=== PATIENT | male | born 1945 | race Caucasian/White ===

== ENCOUNTER 2018-12-15 06:12 | Emergency (ER) | payer MEDICARE ==
[2018-12-15] MEDS ORDERED: Aspirin Chewable 81 MG TAB ONE (06:54)
[2018-12-15 06:57] LABS: ALT (SGPT) 20 U/L (8-55); AST (SGOT) 46 U/L (5-34); Albumin 4.4 g/dL (3.4-4.8); Alkaline Phosphatase 75 U/L (40-150); Anion Gap 16 mmol/L (10-20); BUN (Urea Nitrogen) 12 mg/dL (8.4-25.7); Bilirubin, Total 0.5 mg/dL (0.2-1.2); CK (CPK) 221 U/L (30-200); Calc. Creatinine Clearance 0 mL/min (70-130); Calcium 9.6 mg/dL (7.8-10.44); Carbon Dioxide 24 mmol/L (23-31); Chloride 102 mmol/L (98-107); Estimated GFR-MDRD 56; Globulin 3.1 g/dL (2.4-3.5); Glucose 130 mg/dL (83-110); Lipase 17 U/L (8-78); Potassium 4.1 mmol/L (3.5-5.1); Protein, Total 7.5 g/dL (5.8-8.1); Sodium 138 mmol/L (136-145)
[2018-12-15 06:58] LABS: #Lymphocytes 0.8 thou/uL (1.20-3.40); #Monocytes 0.4 thou/uL (0.11-0.59); #Neutrophils 7.9 thou/uL (1.40-6.50); %Basophils 0.4 % (0.0-1.0); %Eosinophils 0.5 % (0.0-10.0); %Lymphocytes 9.1 % (21.0-51.0); %Monocytes 4.5 % (0.0-10.0); %Neutrophils 85.4 % (42.0-75.0); Anisocytosis SLIGHT = 6-15 cells (100X) (0-5/hpf); Hemoglobin 10.6 g/dL (14.0-18.0); Hypochromia SLIGHT = 6-15 cells (100X) (0-5/hpf); MDiff Complete? YES; Mean Corpuscular HGB CONC 30.4 g/dL (32.0-36.0); Mean Corpuscular Hemoglobin 23.3 pg (27.0-31.0); Mean Corpuscular Volume 76.5 fL (78.0-98.0); Mean Platelet Volume 8.2 fL (7.4-10.4); Microcytosis SLIGHT = 6-15 cells (100X) (0-5/hpf); Ovalocytes SLIGHT = 2-5 cells (100X) (0-1/hpf); Platelet Count 276 thou/uL (130-400); Platelet Morphology Comment Appears Adequate; RBC Distribution Width 14.2 % (11.5-14.5); Red Blood Cell (RBC) Count 4.55 mill/uL (4.70-6.10); White Blood Cell (WBC) Count 9.3 thou/uL (4.8-10.8)
[2018-12-15 07:23] LABS: CKMB 16.1 ng/mL (0-6.6)
[2018-12-15] MEDS ORDERED: Heparin 10,000 UNITS/1 ML VIAL ONE (07:29)
[2018-12-15] MEDS ORDERED: Heparin 25,000 units/D5W 500 ML ONE (07:30)
--- NOTE | 2018-12-15 08:00 | RAD ---
PORTABLE CHEST ONE VIEW: 12/15/2018 6:29 a.m. HISTORY: Chest pain. FINDINGS: The heart size is normal. The lungs are well expanded without lobar consolidation, pneumothoraces, o r pleural effusions. IMPRESSION: No acute process. POS: OFF
== END 2018-12-15 08:31 | disposition short-term general hospital (02) ==
LOC: NAV ERS 06:12
DX: R79.89 Other specified abnormal findings of blood chemistry (principal); E78.5 Hyperlipidemia, unspecified; I10 Essential (primary) hypertension; Z87.891 Personal history of nicotine dependence; Z79.891 Long term (current) use of opiate analgesic; Z79.899 Other long term (current) drug therapy
CPT/HCPCS: 71045; 80053; 82550; 82553; 83690; 83880; 84484; 85025; 93005; 96365; J1644

== ENCOUNTER 2018-12-28 13:59 | Inpatient (IN) | payer MEDICARE ==
[2018-12-28 14:29] VITALS: BMI 25.3
[2018-12-28] MEDS ORDERED: HYDROcodone/Acetaminophen 5/325 mg Tablet PO PRN (19:18)
[2018-12-28] MEDS ORDERED: Nitroglycerin 0.4 MG TAB 1 EACH SL PRN (19:22)
[2018-12-28] MEDS ORDERED: Zolpidem Tartrate 5 MG TAB PO PRN (19:24)
[2018-12-28] MEDS ORDERED: traMADol HCl 50 MG TAB PO PRN (19:24)
[2018-12-28] MEDS: Cephalexin 500 MG CAP PO SCH (21:34)
[2018-12-28] MEDS: Docusate 100 MG CAP PO SCH (21:34)
[2018-12-28] MEDS: Famotidine 20 MG TAB PO SCH (21:34)
[2018-12-28] MEDS: Methocarbamol 500 MG TAB PO SCH (21:34)
[2018-12-28] MEDS: Carvedilol 6.25 MG TAB PO SCH (21:34)
[2018-12-28] MEDS: Atorvastatin Calcium 20 MG TAB PO SCH (21:35)
[2018-12-28] MEDS: Metoprolol Tartrate 25 MG TAB PO SCH (21:35)
--- NOTE | 2018-12-29 00:51 | HP ---
CHIEF COMPLAINT: Status post coronary artery bypass grafting complicated by episodes of ventricular tachycardia requiring AICD placement, now here for therapy. BRIEF HISTORY: This is a pleasant 73-year-old male, who was admitted to [facility] after presenting to the [facility] with a week-long history of exertional chest pain. He apparently took sublingual nitroglycerin, which gave him some relief. He was noted to have ST depression in the lateral leads and was given aspirin, started on heparin infusion for acute coronary syndrome and transferred to [facility] in [place]. Workup there showed possible non-STEMI and underwent coronary angiogram. Coronary angiogram showed severe three-vessel disease including an occluded LAD and decreased LV function with ejection fraction of 35% and was advised coronary artery bypass grafting. He underwent coronary artery bypass grafting on 12/19/2018 but postoperatively had episodes of NSVT, requiring AICD placement. He also was noted to have right knee effusion and underwent arthrocentesis and steroid injection. He has stabilized and was felt to be a candidate for inpatient rehabilitation and transferred here. The patient is currently resting in bed comfortably and denies any concerns. He denies any chest pain or shortness of breath. Denies any lightheadedness or dizziness. No fever or chills. PAST MEDICAL HISTORY: 1. Coronary artery disease. 2. Hypertension. 3. Dyslipidemia. 4. Gastroesophageal reflux disease. 5. Osteoarthritis. PAST SURGICAL HISTORY: 1. Cardiac catheterization. 2. Left knee surgery. ALLERGIES: NO KNOWN DRUG ALLERGIES. FAMILY HISTORY: Positive for hypertension. PSYCHOSOCIAL HISTORY: He lives close to [facility]. He delivers newspapers. He is an [employer] . No tobacco, alcohol, or IV drug abuse. Fairly active and independent. MEDICATIONS: He has been transferred here on the following medications; 1. [place] 5/325 one to two tabs q.6 p.r.n. 2. Ecotrin 325 mg daily. 3. Lipitor 40 mg daily. 4. Dulcolax 10 mg p.o. q.12 p.r.n. 5. Carvedilol 12.5 mg b.i.d. 6. Pepcid 20 mg b.i.d. 7. Lisinopril 2.5 mg daily. 8. Claritin 10 mg daily. 9. Tramadol 50 mg t.i.d. p.r.n. 10. Meloxicam 15 mg daily. 11. Ambien 5 mg p.o. at bedtime p.r.n. REVIEW OF SYSTEMS: CARDIOVASCULAR SYSTEM: Denies any chest pain, shortness of breath, palpitations, PND, orthopnea, or pedal edema. RESPIRATORY SYSTEM: Denies any chronic cough, expectoration, or pleuritic type chest pain. GASTROINTESTINAL SYSTEM: Denies any nausea, vomiting, diarrhea, constipation, hematemesis, melena, or hematochezia. GENITOURINARY SYSTEM: Denies any frequency, urgency, dysuria, or hematuria. CENTRAL NERVOUS SYSTEM: Denies any focal numbness, weakness, or fainting spells. HEENT: No difficulty speech, vision, hearing, or swallowing. SKIN: Denies any rash. PHYSICAL EXAMINATION: GENERAL: Pleasant 73-year-old male, who is resting comfortably in bed and denies any concerns. He is alert, awake, and oriented x3. No family at bedside. VITAL SIGNS: He is afebrile, heart rate 76, respirations 20, oxygen saturation 99% on room air, and blood pressure 122/62. HEENT: Normocephalic, atraumatic. Pupils equally react to light and accommodation. NECK: No JVD, thyromegaly, cervical lymphadenopathy, throat exudates, or carotid bruits. CARDIOVASCULAR SYSTEM: S1 and S2 plus. Rate and rhythm regular. RESPIRATORY SYSTEM: Normal vesicular breath sounds heard in all lung crowder with decreased air entry at the bases. CHEST WALL: Shows healthy AICD site in the right subclavian region. ABDOMEN: Soft, nontender. Bowel sounds in all quadrants. EXTREMITIES: Without cyanosis or clubbing. Some bruising noted in his legs with trace edema. Peripheral pulses are palpable. CENTRAL NERVOUS SYSTEM: AAO x3. Cranial nerves 2 through 12 intact. Generalized weakness. LABORATORY DATA: Laboratory values done this morning shows a white count of 11.3, H and H are 10.4 and 32.9. Sodium 133, potassium 4.4, BUN and creatinine are 16 and . IMPRESSION: 1. Coronary artery disease with non-ST segment elevation myocardial infarction, status post coronary artery bypass grafting. 2. Postop ventricular tachycardia episodes requiring AICD placement. 3. Hyponatremia, stable. 4. Leukocytosis, improving. 5. Hypertension. 6. Dyslipidemia. 7. Osteoarthritis. 8. Gastroesophageal reflux disease. PLAN: 1. Continue discharge medications from previous hospital. 2. Heart healthy diet. 3. Sternal incision care. 4. Incentive spirometry. 5. Decubitus precautions. 6. Stress ulcer prophylaxis. 7. Routine laboratory values. 8. Consult PT/OT, eval and treat. 9. PlexiPulses for DVT prophylaxis. He is fairly active and at very low risk. 10. Discussed with the patient and nursing in detail. All questions answered. Job ID: [id number]
[2018-12-29] MEDS: Cephalexin 500 MG CAP PO SCH ×3 (05:19→21:06)
[2018-12-29 05:38] LABS: #Eosinphils 0.1 thou/uL (0.0-0.7); #Lymphocytes 1.3 thou/uL (1.20-3.40); #Monocytes 1.1 thou/uL (0.11-0.59); %Basophils 0.4 % (0.0-1.0); %Eosinophils 0.8 % (0.0-10.0); %Lymphocytes 10.9 % (21.0-51.0); %Monocytes 9.4 % (0.0-10.0); %Neutrophils 78.5 % (42.0-75.0); Hemoglobin 9.9 g/dL (14.0-18.0); Hypochromia MODERATE=16-30 cells (100X) (0-5/hpf); MDiff Complete? YES; Mean Corpuscular HGB CONC 29.7 g/dL (32.0-36.0); Mean Corpuscular Hemoglobin 23.4 pg (27.0-31.0); Mean Corpuscular Volume 78.9 fL (78.0-98.0); Mean Platelet Volume 7.9 fL (7.4-10.4); Microcytosis SLIGHT = 6-15 cells (100X) (0-5/hpf); Ovalocytes MODERATE= 6-15 cells (100X) (0-1/hpf); Platelet Count 298 thou/uL (130-400); Platelet Morphology Comment Appears Adequate; Poikilocytosis MODERATE=16-30 cells (100X) (0-5/hpf); RBC Distribution Width 15.5 % (11.5-14.5); Red Blood Cell (RBC) Count 4.21 mill/uL (4.70-6.10); Target Cells SLIGHT = 2-5 cells (100X) (0-1/hpf); White Blood Cell (WBC) Count 11.4 thou/uL (4.8-10.8)
[2018-12-29 05:39] LABS: Anion Gap 14 mmol/L (10-20); BUN (Urea Nitrogen) 15 mg/dL (8.4-25.7); Calc. Creatinine Clearance 87 mL/min (70-130); Calcium 8.4 mg/dL (7.8-10.44); Carbon Dioxide 24 mmol/L (23-31); Chloride 102 mmol/L (98-107); Estimated GFR-MDRD 77; Glucose 126 mg/dL (83-110); Potassium 4.9 mmol/L (3.5-5.1); Sodium 135 mmol/L (136-145)
[2018-12-29] MEDS: Famotidine 20 MG TAB PO SCH ×2 (08:22→21:06)
[2018-12-29] MEDS: Loratadine 10 MG TAB PO SCH (08:22)
[2018-12-29] MEDS: Lisinopril 5 MG TAB PO SCH (08:22)
[2018-12-29] MEDS: Aspirin 325 MG TAB PO SCH (08:22)
[2018-12-29] MEDS: Carvedilol 6.25 MG TAB PO SCH ×2 (08:22→21:06)
[2018-12-29] MEDS: Methocarbamol 500 MG TAB PO SCH ×2 (08:22→21:06)
[2018-12-29] MEDS: Cyanocobalamin (Vitamin B-12) 1,000 MCG TAB PO SCH (08:22)
[2018-12-29] MEDS: Metoprolol Tartrate 25 MG TAB PO SCH ×2 (08:22→09:50)
[2018-12-29] MEDS: Docusate 100 MG CAP PO SCH ×2 (08:22→21:06)
[2018-12-29] MEDS: Meloxicam 7.5 MG TAB PO SCH (08:23)
[2018-12-29] MEDS: Atorvastatin Calcium 20 MG TAB PO SCH (21:06)
[2018-12-30] MEDS: Cephalexin 500 MG CAP PO SCH ×3 (05:49→20:52)
[2018-12-30] MEDS: Aspirin 325 MG TAB PO SCH (08:53)
[2018-12-30] MEDS: Loratadine 10 MG TAB PO SCH (08:53)
[2018-12-30] MEDS: Meloxicam 7.5 MG TAB PO SCH (08:53)
[2018-12-30] MEDS: Famotidine 20 MG TAB PO SCH ×2 (08:54→20:52)
[2018-12-30] MEDS: Methocarbamol 500 MG TAB PO SCH ×2 (08:54→20:52)
[2018-12-30] MEDS: Carvedilol 6.25 MG TAB PO SCH ×2 (08:54→20:52)
[2018-12-30] MEDS: Docusate 100 MG CAP PO SCH ×2 (08:54→20:52)
[2018-12-30] MEDS: Lisinopril 5 MG TAB PO SCH (08:54)
[2018-12-30] MEDS: Cyanocobalamin (Vitamin B-12) 1,000 MCG TAB PO SCH (08:54)
--- NOTE | 2018-12-30 15:18 | PRG ---
DATE OF SERVICE: 12/30/2018 SUBJECTIVE: Mr. Gutierrez is doing well. He apparently walked all the way around the nurse's station and he worked on some steps outside with the nurse. Denies any chest pain or shortness of breath. Denies any lightheadedness. OBJECTIVE: VITAL SIGNS: He is afebrile. Heart rate 74, respirations 18, oxygen saturation 98% on room air, blood pressure 111/59. CARDIOVASCULAR: S1-S2 plus. RESPIRATORY: Normal vesicular breath sounds. ABDOMEN: Soft, nontender. Bowel sounds heard in all quadrants. EXTREMITIES/CHEST: Without cyanosis, clubbing. Peripheral pulses are palpable. His sternal incision is healthy. Site of AICD placement is also healthy. CENTRAL NERVOUS SYSTEM: AAO x3. Cranial nerves 2 through 12 intact. Improving deconditioning. IMPRESSION: 1. Coronary artery disease, status post coronary artery bypass grafting. 2. Episodes of nonsustained ventricular tachycardia, requiring AICD placement. 3. Hypertension, well controlled. 4. Dyslipidemia. 5. Gastroesophageal reflux disease. 6. Osteoarthritis. PLAN: 1. Continue current medications. 2. Heart healthy diet. 3. Monitor blood pressure and adjust medications as needed. 4. Sternal precautions. 5. DVT and stress ulcer prophylaxis. 6. Decubitus precaution. 7. Routine laboratory values. 8. Physical therapy. 9. Discussed with the patient and nursing in detail. All questions answered. Job ID: [id number]
[2018-12-30] MEDS: Atorvastatin Calcium 20 MG TAB PO SCH (20:52)
[2018-12-31] MEDS: Cephalexin 500 MG CAP PO SCH ×3 (07:23→21:28)
[2018-12-31] MEDS: Famotidine 20 MG TAB PO SCH ×2 (08:42→21:28)
[2018-12-31] MEDS: Docusate 100 MG CAP PO SCH ×2 (08:42→21:28)
[2018-12-31] MEDS: Loratadine 10 MG TAB PO SCH (08:42)
[2018-12-31] MEDS: Aspirin 325 MG TAB PO SCH (08:42)
[2018-12-31] MEDS: Carvedilol 6.25 MG TAB PO SCH ×2 (08:42→21:28)
[2018-12-31] MEDS: Methocarbamol 500 MG TAB PO SCH ×2 (08:43→21:28)
[2018-12-31] MEDS: Meloxicam 7.5 MG TAB PO SCH (08:43)
[2018-12-31] MEDS: Cyanocobalamin (Vitamin B-12) 1,000 MCG TAB PO SCH (08:43)
[2018-12-31] MEDS: Lisinopril 5 MG TAB PO SCH (08:43)
[2018-12-31] MEDS: Atorvastatin Calcium 20 MG TAB PO SCH (21:28)
[2019-01-01] MEDS: Cephalexin 500 MG CAP PO SCH ×3 (05:55→21:19)
[2019-01-01] MEDS: Methocarbamol 500 MG TAB PO SCH ×2 (08:43→20:18)
[2019-01-01] MEDS: Aspirin 325 MG TAB PO SCH (08:43)
[2019-01-01] MEDS: Carvedilol 6.25 MG TAB PO SCH ×2 (08:44→20:18)
[2019-01-01] MEDS: Docusate 100 MG CAP PO SCH ×2 (08:45→20:18)
[2019-01-01] MEDS: Cyanocobalamin (Vitamin B-12) 1,000 MCG TAB PO SCH (08:45)
[2019-01-01] MEDS: Loratadine 10 MG TAB PO SCH (08:46)
[2019-01-01] MEDS: Meloxicam 7.5 MG TAB PO SCH (08:47)
[2019-01-01] MEDS: Lisinopril 5 MG TAB PO SCH (08:49)
[2019-01-01] MEDS: Famotidine 20 MG TAB PO SCH ×2 (08:53→20:19)
--- NOTE | 2019-01-01 13:48 | PRG ---
DATE OF SERVICE: 01/01/2019 SUBJECTIVE: Mr. Gutierrez is doing well. Denies any complaints. Resting comfortably. Tolerating his therapy. He went out on pass yesterday to his home for a couple of hours. He is hoping he gets discharged soon. OBJECTIVE: VITAL SIGNS: He is afebrile. Heart rate is 71, respirations 20, oxygen saturation 99% on room air, blood pressure 121/58. CARDIOVASCULAR SYSTEM: S1-S2 plus. RESPIRATORY SYSTEM: Normal vesicular breath sounds. ABDOMEN: Soft, nontender. Bowel sounds heard in all quadrants. EXTREMITIES: Without cyanosis, clubbing. Peripheral pulses are palpable. Trace edema. CENTRAL NERVOUS SYSTEM: AAO x3. Cranial nerves 2 through 12 intact. Improving deconditioning. IMPRESSION: 1. Coronary artery disease, status post coronary artery bypass grafting. 2. Episodes of non-sustained ventricular tachycardia requiring automatic implantable cardioverter defibrillator placement. 3. Mild leukocytosis. 4. Mild hyponatremia. 5. Dyslipidemia. 6. Gastroesophageal reflux disease. 7. Osteoarthritis. PLAN: 1. Continue current medications. 2. Recheck CBC and BMP in the morning. 3. Incision care. 4. Sternal precautions. 5. DVT and stress ulcer prophylaxis. 6. Decubitus precaution. 7. Routine laboratory values. 8. Heart healthy diet. 9. Physical therapy. 10. Discharge planning. Job ID: [id number]
[2019-01-01] MEDS: Atorvastatin Calcium 20 MG TAB PO SCH (20:18)
[2019-01-02] MEDS: Cephalexin 500 MG CAP PO SCH ×2 (05:56→14:05)
[2019-01-02 06:23] LABS: #Eosinphils 0.1 thou/uL (0.0-0.7); #Lymphocytes 1.3 thou/uL (1.20-3.40); #Monocytes 0.8 thou/uL (0.11-0.59); #Neutrophils 5.6 thou/uL (1.40-6.50); %Basophils 0.5 % (0.0-1.0); %Eosinophils 1.3 % (0.0-10.0); %Lymphocytes 16.4 % (21.0-51.0); %Monocytes 9.9 % (0.0-10.0); %Neutrophils 71.9 % (42.0-75.0); Mean Corpuscular Hemoglobin 23.9 pg (27.0-31.0); Mean Corpuscular Volume 79.6 fL (78.0-98.0); Mean Platelet Volume 7.3 fL (7.4-10.4); Platelet Count 269 thou/uL (130-400); RBC Distribution Width 16.1 % (11.5-14.5); Red Blood Cell (RBC) Count 3.78 mill/uL (4.70-6.10); White Blood Cell (WBC) Count 7.7 thou/uL (4.8-10.8)
[2019-01-02 06:33] LABS: Anion Gap 12 mmol/L (10-20); BUN (Urea Nitrogen) 18 mg/dL (8.4-25.7); Calc. Creatinine Clearance 80 mL/min (70-130); Calcium 8.5 mg/dL (7.8-10.44); Carbon Dioxide 25 mmol/L (23-31); Chloride 103 mmol/L (98-107); Estimated GFR-MDRD 70; Glucose 120 mg/dL (83-110); Potassium 4.4 mmol/L (3.5-5.1); Sodium 136 mmol/L (136-145)
[2019-01-02] MEDS: Cyanocobalamin (Vitamin B-12) 1,000 MCG TAB PO SCH (08:34)
[2019-01-02] MEDS: Aspirin 325 MG TAB PO SCH (08:34)
[2019-01-02] MEDS: Docusate 100 MG CAP PO SCH (08:34)
[2019-01-02] MEDS: Meloxicam 7.5 MG TAB PO SCH (08:34)
[2019-01-02] MEDS: Carvedilol 6.25 MG TAB PO SCH (08:36)
[2019-01-02] MEDS: Lisinopril 5 MG TAB PO SCH (08:36)
[2019-01-02] MEDS: Loratadine 10 MG TAB PO SCH (08:36)
[2019-01-02] MEDS: Methocarbamol 500 MG TAB PO SCH (08:38)
[2019-01-02] MEDS: Famotidine 20 MG TAB PO SCH (08:38)
[2019-01-02 14:08] VITALS: BP 102/51; TEMP 97.7
--- NOTE | 2019-01-02 16:18 | DIS ---
DATE OF ADMISSION: 12/28/2018 DATE OF DISCHARGE: 01/02/2019 PRINCIPAL DIAGNOSIS: Coronary artery disease, status post coronary artery bypass grafting. SECONDARY DIAGNOSES: 1. Episodes of ventricular tachycardia, requiring automatic implantable cardioverter defibrillator placement. 2. Hypertension. 3. Dyslipidemia. 4. Gastroesophageal reflux disease. 5. Osteoarthritis. COMPLICATIONS: None. ADVERSE REACTIONS: None. PROCEDURES: None. CONSULTATIONS: None. HOSPITAL COURSE: The patient was admitted on 12/28/2018 after undergoing coronary artery bypass grafting and AICD placement for postoperative episodes of ventricular tachycardia. He was transferred here for therapy. He has done amazingly well, and he was deemed stable for discharge to home. He is to start outpatient cardiac rehab. He has outpatient appointments already scheduled with his PCP and his cardiovascular surgeon. He states that he does not need any prescriptions. No family at bedside. PHYSICAL EXAMINATION: VITAL SIGNS: On the day of discharge, he is afebrile, heart rate is 72, respirations 16, oxygen saturation 99% on room air, and blood pressure 140/64. CARDIOVASCULAR SYSTEM: S1 and S2 plus. RESPIRATORY SYSTEM: Normal vesicular breath sounds. CHEST: Sternal incision is healthy. Defibrillator site is healthy, it is in the right subclavian area. ABDOMEN: Soft and nontender. Bowel sounds heard in all quadrants. EXTREMITIES: Without cyanosis or clubbing. Peripheral pulses are palpable. DJD in his knees. CENTRAL NERVOUS SYSTEM: AAO x3. Cranial nerves 2 through 12 intact. Improving deconditioning. LABORATORY VALUES: White count is 7.7 and H and H are 9 and 30.1. Sodium 136, potassium 4.4, and BUN and creatinine are 18 and 1.04. PLAN: 1. Discharged to home. 2. Outpatient cardiac rehab. 3. Keep appointments with his PCP and cardiovascular surgeon. 4. Activity restrictions as instructed. 5. Heart-healthy diet. 6. Monitor blood sugars with PCP. It has been 126 and 120 here, borderline. 7. The patient is to return to the ER if he has any chest pain, shortness of breath, lightheadedness, or dizziness. 8. The patient was advised to call us with any questions or concerns. 9. Discharge medications are;. a. Aspirin 325 mg daily. b. Lipitor 20 mg daily. c. Carvedilol 12.5 mg b.i.d. d. Colace 100 mg b.i.d. e. Pepcid 20 mg b.i.d. f. Imdur 60 mg daily. g. Lisinopril 2.5 mg daily. h. Claritin 10 mg daily. i. Meloxicam 15 mg daily. He has not taken any pain medicines or sleeping pill and those have been discontinued. For full details, please see chart. Total time spent on this discharge, 35 minutes. Job ID: [id number]
== END 2019-01-02 14:30 | disposition home or self-care (01) | DRG 303 ==
LOC: NAV ACUTE 13:59
PROVIDERS: ADMIT Internal Medicine; ATTEND Internal Medicine
DX: I25.10 Atherosclerotic heart disease of native coronary artery without angina pectoris (principal); E87.1 Hypo-osmolality and hyponatremia; I47.2 Ventricular tachycardia; D72.829 Elevated white blood cell count, unspecified; I10 Essential (primary) hypertension; E78.5 Hyperlipidemia, unspecified; M19.90 Unspecified osteoarthritis, unspecified site; K21.9 Gastro-esophageal reflux disease without esophagitis; Z98.890 Other specified postprocedural states; Z79.899 Other long term (current) drug therapy; Z95.1 Presence of aortocoronary bypass graft
CPT/HCPCS: 80048; 85025

== ENCOUNTER 2019-07-01 01:44 | Emergency (ER) | payer MEDICARE, OTHER ==
[2019-07-01 02:59] LABS: ALT (SGPT) 54 U/L (8-55); AST (SGOT) 52 U/L (5-34); Albumin 4.1 g/dL (3.4-4.8); Alkaline Phosphatase 93 U/L (40-110); Anion Gap 15 mmol/L (10-20); BUN (Urea Nitrogen) 11 mg/dL (8.4-25.7); Bilirubin, Total 0.6 mg/dL (0.2-1.2); Calc. Creatinine Clearance 0 mL/min (70-130); Calcium 9.1 mg/dL (7.8-10.44); Carbon Dioxide 24 mmol/L (23-31); Chloride 98 mmol/L (98-107); Estimated GFR-MDRD 56; Globulin 3.3 g/dL (2.4-3.5); Glucose 121 mg/dL (83-110); Potassium 4.6 mmol/L (3.5-5.1); Protein, Total 7.4 g/dL (5.8-8.1); Sodium 132 mmol/L (136-145)
[2019-07-01 03:05] LABS: #Lymphocytes 1.5 thou/uL (1.20-3.40); #Neutrophils 7.6 thou/uL (1.40-6.50); %Basophils 0.4 % (0.0-1.0); %Eosinophils 0.3 % (0.0-10.0); %Lymphocytes 14.6 % (21.0-51.0); %Monocytes 9.9 % (0.0-10.0); %Neutrophils 74.8 % (42.0-75.0); Hemoglobin 10.1 g/dL (14.0-18.0); Hypochromia SLIGHT = 6-15 cells (100X) (0-5/hpf); MDiff Complete? YES; Mean Corpuscular HGB CONC 29.9 g/dL (32.0-36.0); Mean Corpuscular Hemoglobin 22.2 pg (27.0-31.0); Mean Corpuscular Volume 74.3 fL (78.0-98.0); Mean Platelet Volume 7.3 fL (7.4-10.4); Microcytosis SLIGHT = 6-15 cells (100X) (0-5/hpf); Ovalocytes SLIGHT = 2-5 cells (100X) (0-1/hpf); Platelet Count 263 thou/uL (130-400); Platelet Morphology Comment Appears Adequate; RBC Distribution Width 16.6 % (11.5-14.5); Red Blood Cell (RBC) Count 4.53 mill/uL (4.70-6.10); White Blood Cell (WBC) Count 10.2 thou/uL (4.8-10.8)
[2019-07-01] MEDS ORDERED: Acetaminophen 500 MG TAB ONE (03:11)
[2019-07-01 03:12] LABS: Bilirubin Negative (Negative); Blood, Urine Small (Negative); Clarity Hazy (Clear); Glucose, Urine (Dipstick) Negative (Negative); Leukocyte Moderate (Negative); Nitrite Positive (Negative); Protein, Urine (Dipstick) 30 mg/dL (Neg-Trace); Urobilinogen 0.2 mg/dL (Less than 2)
[2019-07-01 03:16] LABS: RBC/HPF 0-3 HPF (0-3)
[2019-07-01 03:17] LABS: Bacteria/HPF Rare-Few HPF (None Seen); Squamous Epithelial 0-3 HPF (0-3)
[2019-07-01] MEDS ORDERED: Morphine 2 MG/ML SYRINGE ONE (03:59)
[2019-07-01] MEDS ORDERED: Cipro 250 MG TAB ONE (03:59)
--- NOTE | 2019-07-01 09:42 | RAD ---
Exam: 2 views lumbar spine HISTORY: Pain. COMPARISON: 05/29/2011 FINDINGS: 5 lumbar type vertebra. Vertebral body height is maintained. No fracture. Preservation disc space height. Straightening of normal lumbar lordosis. No listhesis or spondylolysis IMPRESSION: Mild multilevel degenerative change. When compared to previous exam, slight progression i n terms of loss of disc space height.
--- NOTE | 2019-07-01 09:44 | RAD ---
Exam: Chest one view HISTORY:Fever Comparison: 04/19/2019 FINDINGS: Cardiac silhouette:Upper normal cardiac silhouette. Stable sternotomy wires and stable right-sided du al lead transvenous defibrillator. Aorta: Unremarkable Pulmonary vessels: Normal Costophrenic angles: Clear LUNGS: No masses or consolidation. Pneumothorax: None Osseous abnormalities: None IMPRESSION: No acute cardiopulmonary process.
== END 2019-07-01 04:40 | disposition home or self-care (01) ==
LOC: NAV ERS 01:44
DX: N39.0 Urinary tract infection, site not specified (principal); E78.5 Hyperlipidemia, unspecified; E78.00 Pure hypercholesterolemia, unspecified; I25.10 Atherosclerotic heart disease of native coronary artery without angina pectoris; I10 Essential (primary) hypertension; Z87.891 Personal history of nicotine dependence; Z79.899 Other long term (current) drug therapy
CPT/HCPCS: 71045; 72100; 80053; 81003; 81015; 83605; 85025; 87040; 87086; 87804; 96374; J2270